=== PATIENT | female | born 1980 | race African-American/Black ===

== ENCOUNTER 2019-03-12 14:26 | Emergency (ER) | payer BC ==
[~2019-03-12] VITALS: Ht 160 cm; Wt 86.2 kg
[2019-03-12 14:29] VITALS: BP 153/116
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
[2019-03-12] MEDS ORDERED: DICL50TA4 PO (15:41)
[2019-03-12] MEDS ORDERED: TRAM50TA PO (15:41)
[2019-03-12] MEDS ORDERED: ORPH100T PO (15:41)
[2019-03-12] MEDS ORDERED: traMADol 50 MG TABLET PO ONE (15:45)
[2019-03-12] MEDS ORDERED: CYCLOBENZAPRINE 10 MG TABLET. PO ONE (15:45)
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
== END 2019-03-12 15:55 | disposition home or self-care (01) ==
LOC: ER 14:26
DX: S29.012A Strain of muscle and tendon of back wall of thorax, initial encounter (principal); M25.511 Pain in right shoulder; V89.2XXA Person injured in unspecified motor-vehicle accident, traffic, initial encounter; Y93.89 Activity, other specified; Y92.488 Other paved roadways as the place of occurrence of the external cause; Y99.8 Other external cause status
CPT/HCPCS: 72072; 73030; 99284